=== PATIENT | female | born 1995 | race Caucasian/White ===

== ENCOUNTER 2021-06-30 12:45 | Emergency (ER) | payer BC ==
[2021-06-30 13:15] LABS: HEMOGLOBIN 15.2 gm/dl (12.3-15.3); RED BLOOD COUNT 5.03 M/UL (4.00-5.10); WHITE BLOOD COUNT 10.7 K/UL (4.5-11.0)
[2021-06-30 13:45] LABS: BUN/CREATININE RATIO 11 (0-10)
[2021-06-30] MEDS ORDERED: ASPIRIN CHEWABL81 MG PO (15:55)
== END 2021-06-30 16:25 | disposition home or self-care (01) ==
LOC: ER1 12:45
PROVIDERS: Emergency Medicine
DX: R07.89 Other chest pain (principal); F41.9 Anxiety disorder, unspecified
CPT/HCPCS: 71045; 80053; 82550; 82553; 83735; 84484; 85025; 85379; 93005; 99285